=== PATIENT | male | born 1990 | race Caucasian/White ===

== ENCOUNTER 2020-05-25 10:23 | Emergency (ER) | payer OTHER ==
[~2020-05-25] VITALS: Ht 175.3 cm; Wt 104.5 kg
[2020-05-25 10:26] VITALS: BP 115/79
== END 2020-05-25 11:11 ==
LOC: ER 10:25
DX: T40.1X1A Poisoning by heroin, accidental (unintentional), initial encounter (principal); Y92.89 Other specified places as the place of occurrence of the external cause
CPT/HCPCS: 74018; 99283

== ENCOUNTER → 2021-05-26 | Emergency (ER) | payer MEDICAID ==
[~2021-05-26] VITALS: Ht 175.3 cm; Wt 109.1 kg
[~2021-05-26] MED LIST: CEPH500C2 PO; HYDR-3965 PO
[2021-05-26 14:00] VITALS: BP 129/71
== END | disposition home or self-care (01) ==
LOC: ER 13:53
DX: S81.811A Laceration without foreign body, right lower leg, initial encounter (principal); W01.0XXA Fall on same level from slipping, tripping and stumbling without subsequent striking against object, initial encounter; Y93.89 Activity, other specified; Y92.89 Other specified places as the place of occurrence of the external cause; Y99.8 Other external cause status
CPT/HCPCS: 12002; 73590; 99283